=== PATIENT | male | born 1965 | race Caucasian/White ===

== ENCOUNTER 2020-09-24 02:26 | Day surgery (SDC) | payer BC, SELFPAY ==
[2020-09-18 15:11] VITALS: BMI 28.5
--- NOTE | 2020-09-24 07:52 | PM.HPGS ---
History of Present Illness History of Present Illness Consent: Risks, benefits, and alternatives of removal of multiple subcutaneous masses have been discussed and questions answered. Patient agrees to proceed with procedure. Chief complaint: lipomas Narrative: Milton Orantes is a 55 year old White male who was recently seen in the office at the request of Dr. Spears for evaluation of possible lipomas. Patient reports he has had a total of 3-4 masses. One is located on his chest, one on his back one in the Lt axilla on the chest side, and one on upper medial Rt. arm. He reports these are causing some pain but they are growing at a slow rate. He reports that none really bother him but because of their growth he has concern has never had one removed. Patient states he 1st noticed these about 3-5 years ago. Patient's mother from squamous cell carcinoma of the mouth last year. Review of Systems Constitutional: Constitutional: Reports no additional constitutional complaints and Denies frequent falls Eyes: Eyes: Reports as per HPI ENT: Reports Normal hearing present, Denies dizziness and Reports other (Mucous membranes moist.) Cardiovascular: Cardiovascular: Denies chest pain, Denies palpitations, Denies dyspnea and Denies dyspnea on exertion Respiratory: Respiratory: Denies hemoptysis, Denies dyspnea, Denies dyspnea on exertion and Denies wheezing Gastrointestinal: Gastrointestinal: Reports no additional gastrointestinal complaints Genitourinary: Genitourinary: Denies hematuria, Denies nocturia and Denies urinary frequency Musculoskeletal: Musculoskeletal: Denies deformity and Reports other ( no clubbing,cyanosis, or edema) Integumentary/Breasts: Skin/Breast: Denies new lesions, Denies rash and Denies unusual bruising Neurologic: Reports Normal hearing present, Denies dizziness, Denies frequent falls, Denies memory loss and Denies seizure-like activity Psychiatric: Psychiatric: Denies memory loss and Reports other ( normal mood and mental status) Endocrine: Endocrine: Denies cold intolerance and Denies palpitations Hematologic/Lymphatic: Hematologic/Lymphatic: Denies easy bleeding and Denies easy bruising Allergic/Immunologic: Allergic/Immunologic: Denies wheezing and Reports other ( no lymphadenopathy) [facility] Past Medical History Medical History B12 deficiency Brain concussion (~04/09/16) Detrusor instability Electric shock Erectile dysfunction Foot fracture, right (~09/27/18) Fracture of first metatarsal bone of right foot Hand fracture (~1991) Hyperglycemia Leg fracture (~1977) Neuroma of third interspace of right foot Overweight (BMI 25.0-29.9) Prediabetes Rectal polyp (~06/26/17) Requests hormone replacement therapy Sleep apnea Testosterone deficiency in male Tubular adenoma (~06/26/17) Unspecified vitamin D deficiency Surgical History Surgical History History of adenoidectomy History of hand surgery History of tonsillectomy Family History Family History Grandparent Diabetes mellitus Breast cancer Father Malignant neoplasm of prostate Heart disease Mother Malignant neoplasm Other Malignant neoplasm of prostate Other Family history of arthritis Social History Social History Alcohol intake: current Drinks per week: 10 Living arrangements: with family Additional occupation/education comments: Sales Meds Home Medications and Allergies Home Medications Medication Instructions Recorded Confirmed Type oxybutynin chloride 5 mg tablet 5 mg PO DAILY PRN #30 tablet 03/30/20 09/18/20 Rx sildenafil (pulm.hypertension) 20 20 mg PO DAILY PRN #30 tablet 03/30/20 09/18/20 Rx mg tablet fluticasone propionate 2 spray NASAL DAILY PRN 09/18/20
[2020-09-24 08:31] VITALS: BMI 28.3
[2020-09-24 08:34] VITALS: BP 121/77; PULSE 71; RESP 18; TEMP 36.2; O2SAT 100
--- NOTE | 2020-09-24 08:37 | WPDANESEPPF ---
Anes - Initial Pre Proc Eval Procedure: Operation Date: 09/24/20 09:00 Proposed Procedures p Excision of Three Lipomas-Right Upper Arm, Left Chest and Left Upper Arm - Mansoor Geller MD Date/Time: 09/24/20 08:37 Surgeon: Mansoor Geller MD Pre Op Diagnosis: lipomas Patient Data Age: 55 Gender: M Height: 1.8 m Weight: 92.1 kg Last Vital Signs Temp 36.2 C L 09/24/20 08:34 Pulse 71 09/24/20 08:34 Resp 18 09/24/20 08:34 BP 121/77 09/24/20 08:34 Pulse Ox 100 09/24/20 08:34 Allergies Allergy/AdvReac Type Severity Reaction Status Date / Time meperidine Allergy Mild Hives Verified 09/24/20 08:02 Penicillins Allergy Mild Rash Verified 09/24/20 08:02 Home Medications Medication Instructions Recorded Confirmed Type oxybutynin chloride 5 mg tablet 5 mg PO DAILY PRN #30 tablet 03/30/20 09/18/20 Rx sildenafil (pulm.hypertension) 20 20 mg PO DAILY PRN #30 tablet 03/30/20 09/18/20 Rx mg tablet fluticasone propionate 2 spray NASAL DAILY PRN 09/18/20 09/18/20 History Patient hx anesthesia problems: none Family hx anesthesia problems: none PMFSH Past Medical History Medical History B12 deficiency Brain concussion (~04/09/16) Detrusor instability Electric shock Erectile dysfunction Foot fracture, right (~09/27/18) Fracture of first metatarsal bone of right foot Hand fracture (~1991) Hyperglycemia Leg fracture (~1977) Neuroma of third interspace of right foot Overweight (BMI 25.0-29.9) Prediabetes Rectal polyp (~06/26/17) Requests hormone replacement therapy Sleep apnea Testosterone deficiency in male Tubular adenoma (~06/26/17) Unspecified vitamin D deficiency Surgical History Surgical History History of adenoidectomy History of hand surgery History of tonsillectomy Family History Family History Grandparent Diabetes mellitus Breast cancer Father Malignant neoplasm of prostate Heart disease Mother Malignant neoplasm Other Malignant neoplasm of prostate Other Family history of arthritis Social History Social History Alcohol intake: current Drinks per week: 10 Living arrangements: with family Additional occupation/education comments: [employer] Final PreProcedure Day of Procedure 09/24/20 08:37 Patient weight: overweight Heart: regular rate and rhythm Lungs: clear to auscultation and normal air movement Airway: Mallampati scale class II Neurological: alert and oriented Last oral intake: >/= 8 hours ASA classification: III Emergent: no Anesthetic plan: proceed Anesthesia type and monitoring: general GIVS and LMA Informed Consent: The patient's anesthetic plan and its attendant risks and benefits were discussed with the patient/family/POA. Questions were solicited and answers provided to the satisfaction of the patient/family/POA.
[2020-09-24] MEDS: LACTATED RINGERS 1,000 ML 30 ML IV CONT (09:19)
--- NOTE | 2020-09-24 10:12 | WPDHPUPDATE1 ---
History and Physical Update Update Date/Time: 09/24/20 10:12 History and Physical has been reviewed, including an updated exam of the patient. There are NO changes in the patient's condition. Risks, benefits, and alternatives have been discussed and questions answered. Patient agrees to proceed with procedure.
--- NOTE | 2020-09-24 10:23 | WPDHPUPDATE1 ---
History and Physical Update Update Date/Time: 09/24/20 10:23 History and Physical has been reviewed, including an updated exam of the patient. There are NO changes in the patient's condition. Risks, benefits, and alternatives have been discussed and questions answered. Patient agrees to proceed with procedure.
[2020-09-24] MEDS: ceFAZolin 2 GM/D5W 50 ML 2 GM/50 ML BAG IVPB (10:37)
[2020-09-24] MEDS: BUPIVACAINE/EPINEPHRINE 0.5% 50 ML VIAL (11:29)
[2020-09-24 11:45] VITALS: BP 112/77; PULSE 61; RESP 12; O2SAT 98
[2020-09-24 12:15] VITALS: BP 122/90; PULSE 52; RESP 16
[2020-09-24] MEDS: ACETAMINOPHEN 325 MG TABLET 650 MG PO (12:43)
[2020-09-24 12:45] VITALS: BP 116/73; PULSE 50; RESP 16
--- NOTE | 2020-09-24 13:38 | SUR.PHASEII ---
1315 pt ready for discharge waiting for dr desir to get done with case. no orders for discharge in or pain prescriptions
--- NOTE | 2020-09-24 22:10 | P.OP_ITS ---
Procedure Note - Detailed Date of Procedure 09/24/20 Pre-op Diagnosis subcutaneous masses right upper arm and left anterior chest ( suspected lipomas) Post-op Diagnosis same Procedure Performed Excision of subcutaneous masses left anterior chest 2.5 x 2 cm and right upper arm 1.5 x 1.2 cm Surgeon Mansoor Geller MD [employer] CONOR Will, OR 1st assist Anesthesia local ( 0.5 Marcaine with epinephrine) and other ( G IV S) Indications enlarging lipomas or subcutaneous masses concerning to the patient since his mother of cancer 1 year ago. Description of Procedure The patient was placed in the supine position with his Rt. arm out to the tony and rotated externaly. After a surgical time out confirming patient and procedure the patient was prepped and draped in the usual sterile fashion exposing first the mass on his left anterior chest and then later cutting a separate hole in the drawpe immediately over the area on his Rt. arm where the other skin/sucutaneous lesion existed. Local anesthetic was administered subcutaneously. The lesion measured 2.5 X2.0 cm on the Left chest and 1.5 X 1.2 cm on the Rt. upper arm. On the left anterior chest, because it seemed to be a subcutaneous mass with no overlying skin changes, a direct incision was made over the mass transversely and carried down through subcutaneous tissues. I identified what appeared to be a fatty tumor, suspected lipoma, in the subcutaneous tissues. Keeping just outside the thin apparent capsule I completely excised this lesion passed off field for pathologic evaluation. This was subsequently closed in two layers in the same manner described below for that on the arm. An elliptical incision was made around the lesion on the Rt. upper arm taking a thin margin circumferentially. I dissected down to the deep subcutaneous tissues and then completely excised the lesion. Bleeding was controlled with electrocautery. The wound was closed in two layers. An un-dyed 3-0 Vicryl deep dermal and then a 4-0 undyed Monocryl running subcuticular closure was completed. Surgical glue applied as dressing. Patient tolerated this well. Estimated Blood Loss -5.0 Drains No Pathology yes Complications No immediate complications Condition stable Disposition same day
== END 2020-09-24 14:21 | disposition home or self-care (01) ==
PROVIDERS: PCP Family Medicine; Visit Provider Surgery
PROC: (CPT 24075; principal; 2020-09-24 09:00)
DX: D17.21 Benign lipomatous neoplasm of skin and subcutaneous tissue of right arm (principal); D17.1 Benign lipomatous neoplasm of skin and subcutaneous tissue of trunk; E53.8 Deficiency of other specified B group vitamins; R73.9 Hyperglycemia, unspecified; R73.03 Prediabetes; G47.30 Sleep apnea, unspecified; E55.9 Vitamin D deficiency, unspecified; E78.2 Mixed hyperlipidemia
CPT/HCPCS: 24075; 21555; 88304; A9270; J0690; J1100; J2250; J2405; J2704; J3010; J7120

== ENCOUNTER 2021-09-23 13:55 | Outpatient (CLI) | payer BC, SELFPAY ==
--- NOTE | ~2021-09-23 | XR_ITS ---
XR hip RT min 2V 09/23/2021 14:15 Indication: Right hip pain after fall Procedure: 2 views right hip Comparison: No prior studies for comparison. Findings: There is mild-moderate osteoarthritis of the right hip. No fracture, subluxation or disloca tion. No soft tissue abnormality. Impression: 1: Mild-moderate osteoarthritis of the right hip. Reviewed, dictated and finalized at location B. Impression: 1: Mild-moderate osteoarthritis of the right hip.
== END 2021-09-23 13:56 | disposition home or self-care (01) ==
PROVIDERS: PCP Family Medicine; Visit Provider Family Medicine
DX: M16.11 Unilateral primary osteoarthritis, right hip (principal)
CPT/HCPCS: 73502

== ENCOUNTER 2021-11-26 10:46 | Outpatient (CLI) | payer BC, SELFPAY ==
[2021-11-26 20:44] LABS: LDL Cholesterol Direct 139 mg/dL
[2021-11-26 20:55] LABS: Hemoglobin A1C 5.8 % (<5.7)
[2021-11-26 21:16] LABS: Alanine Aminotransferase 34 U/L (6-50); Albumin Level 4.9 g/dL (3.5-5.1); Alkaline Phosphatase 57 U/L (38-126); Anion Gap 11 mmol/L (8-16); Aspartate Amino Transferase 33 U/L (17-59); Bilirubin,Total 0.5 mg/dL (0.2-1.3); Blood Urea Nitrogen 15 mg/dL (9-20); Calcium 9.7 mg/dL (8.4-10.2); Carbon Dioxide 29 mmol/L (22-30); Chloride 100 mmol/L (98-107); Cholesterol 241 mg/dL (0-200); Estimated Glomerular Filt Rate > 60; Glucose 91 mg/dL (65-110); HDL Direct 61 mg/dL; Potassium 4.9 mmol/L (3.4-5.0); Sodium 140 mmol/L (137-145); Triglycerides 171 mg/dL (<150)
== END 2021-11-26 10:47 | disposition home or self-care (01) ==
LOC: ANHGOSHLAB 10:47
PROVIDERS: PCP Family Medicine; Visit Provider Family Medicine
DX: E78.5 Hyperlipidemia, unspecified (principal)
CPT/HCPCS: 36415; 80053; 80061; 83036

== ENCOUNTER 2022-06-01 07:53 | Outpatient (CLI) | payer BC, SELFPAY ==
--- NOTE | 2022-06-22 17:12 | WPDSLEEPSTUD ---
Sleep Study Date of Study: 06/01/22 Ordering Provider: Rivera Spears MD Interpreting Physician: Susy Cleary MD Sleep Study Type: Polysomnogram Height: 1.8 m Weight: 90.718 kg Body Mass Index: 27.8 Neck Circumference (inches): 17 [place]: 10 Reason for Sleep Study Hypersomnolence Sleep History Milton Orantes is a 57-year-old man with snoring and restless sleep. he occasionally awakens from sleep feeling short of breath. He rarely awakens at night with heartburn, belching or coughing. He frequently snores very loudly. He occasionally has trouble sleeping with a cold. He rarely wakes up gasping for breath at night or a breathing problems at night observed by others. He occasionally sweats excessively at night, occasionally notices his heart pounding or beating irregularly at night and occasionally falls asleep during the day. He rarely falls asleep involuntarily, never falls asleep while driving. He does not have loss of muscle tone with strong emotion. He rarely has daytime difficulties due to excessive sleepiness. He does not feel paralyzed on waking or falling asleep. He does not have vivid dreamlike scenes on waking or falling asleep. He occasionally feels afraid to go to sleep. He rarely has nightmares. He rarely remembers his dreams. He occasionally has racing thoughts. He rarely feels sad or depressed. He occasionally has anxiety. He rarely has muscular tension. He occasionally notices parts of his body jerking. He does not kick at night. He occasionally has crawling and aching feelings in his legs. He occasionally has leg pain at night. He occasionally has morning jaw pain. He occasionally grinds his teeth during sleep. He rarely is bothered by pain during the day. He rarely is awakened by pain at night. He occasionally wakes up feeling stiff in the morning with sore achy muscles. He occasionally wakes up with pain in the neck and spine. Normal bedtime is midnight, sometimes taking hours to fall asleep. He usually wakes twice during the night for about 15 minutes, Usually to go to the bathroom and he is able to return to sleep easily. He wakes in the morning by 7:00 a.m.. His weekend schedule is the same. At best he is getting 6 hours of sleep at night. He does not generally take naps in the afternoon or evening. A short nap may be refreshing. He is drowsy for 2 hours after waking. He feels better in the afternoon compared to other times of day.. Habits: Never smoked tobacco. Caffeine 1 red Bull per day. Alcohol 2 beverages average per day. No recreational substances. [facility] Past Medical History Medical History B12 deficiency Brain concussion (~04/09/16) Detrusor instability Electric shock Erectile dysfunction Foot fracture, right (~09/27/18) Fracture of first metatarsal bone of right foot Hand fracture (~1991) Hyperglycemia Leg fracture (~1977) Neuroma of third interspace of right foot Overweight (BMI 25.0-29.9) Prediabetes Rectal polyp (~06/26/17) Requests hormone replacement therapy Sleep apnea Testosterone deficiency in male Tubular adenoma (~06/26/17) Unspecified vitamin D deficiency Varicose vein of leg Surgical History Surgical History History of adenoidectomy History of excision of mass Excision of subcutaneous masses left anterior chest 2.5 x 2 cm and right upper arm 1.5 x 1.2 cm 09/24/20 History of hand surgery History of tonsillectomy Family History Family History Grandparent Diabetes mellitus Breast cancer Father Malignant neoplasm of prostate Heart disease Mother Malignant neoplasm Other Malignant neoplasm of prostate Other Family history of arthritis Social History Social History Smoking status: Never smoker Alcohol intake: cur
[2022-06-23 18:52] VITALS: BMI 27.8
== END 2022-06-02 06:10 | disposition home or self-care (01) ==
LOC: ANHCSM 07:54
PROVIDERS: PCP Family Medicine; Visit Provider Family Medicine
DX: G47.10 Hypersomnia, unspecified (principal); R06.83 Snoring
CPT/HCPCS: 95810

== ENCOUNTER 2022-06-11 08:11 | Outpatient (CLI) | payer BC, SELFPAY ==
[2022-06-11 15:34] LABS: Hemoglobin A1C 5.7 % (<5.7)
[2022-06-11 15:45] LABS: Prostate Specific Antigen 0.7 ng/mL (< OR = 4.0)
[2022-06-15 10:50] LABS: Testosterone Total 281 ng/dL (250-1100)
== END 2022-06-11 08:12 | disposition home or self-care (01) ==
LOC: ANHGOSHLAB 08:12
PROVIDERS: PCP Family Medicine; Visit Provider Family Medicine
DX: E78.5 Hyperlipidemia, unspecified (principal); R73.03 Prediabetes; Z80.42 Family history of malignant neoplasm of prostate; R61 Generalized hyperhidrosis
CPT/HCPCS: 36415; 83036; 84153; 84403; G0103

== ENCOUNTER 2023-06-29 12:34 | Outpatient (CLI) | payer BC, SELFPAY ==
[2023-06-29 13:26] LABS: Basophils Percent Auto 0.7 % (0.2-1.2); Eosinophils Absolute Auto 0.2 K/mm3 (0-0.3); Eosinophils Percent Auto 4.1 % (0-4.4); Hemoglobin 13.8 g/dL (14.0-18.0); Immature Granulocyte Absolute 0.03 K/mm3 (0.00-0.031); Immature Granulocyte Percent A 0.7 % (0-0.5); Lymphocytes Absolute Auto 1.79 K/mm3 (0.9-3.2); Lymphocytes Percent Auto 40.9 % (18.3-44.2); Mean Corpuscular HGB Conc 32.9 g/dl (32-36); Mean Corpuscular Hemoglobin 31.2 pg (26-34); Mean Corpuscular Volume 94.8 fl (80-100); Mean Platelet Volume 9.9 fl (7.4-10.4); Monocytes Absolute Auto 0.4 K/mm3 (0.1-0.6); Neutrophils Absolute Auto 1.9 K/mm3 (1.3-6.7); Neutrophils Percent Auto 43.6 % (45.5-73.1); Platelet Count Result 254 k/mm3 (150-375); Red Blood Count 4.43 M/mm3 (4.6-6.20); Red Cell Distribution Width 12.5 % (11.5-14.5); White Blood Count 4.4 K/mm3 (4.5-10.0)
[2023-06-29 14:07] LABS: Hemoglobin A1C 5.6 % (<5.7)
[2023-06-29 20:09] LABS: Alanine Aminotransferase 33 U/L (6-50); Albumin Level 4.7 g/dL (3.5-5.1); Alkaline Phosphatase 52 U/L (38-126); Anion Gap 6 mmol/L (4-12); Aspartate Amino Transferase 39 U/L (17-59); Bilirubin,Total 0.8 mg/dL (0.2-1.3); Blood Urea Nitrogen 20 mg/dL (9-20); Carbon Dioxide 28 mmol/L (22-30); Chloride 102 mmol/L (98-107); Cholesterol 241 mg/dL (0-200); Estimated Glomerular Filt Rate > 60; Glucose 95 mg/dL (65-110); HDL Direct 46 mg/dL; Potassium 4.2 mmol/L (3.4-5.0); Sodium 136 mmol/L (137-145); Triglycerides 159 mg/dL (<150)
[2023-06-29 20:20] LABS: LDL Cholesterol Direct 153 mg/dL
== END 2023-06-29 12:35 | disposition home or self-care (01) ==
LOC: ANHGOSHLAB 12:35
PROVIDERS: PCP Family Medicine; Visit Provider Nurse Practitioner Family
DX: E53.8 Deficiency of other specified B group vitamins (principal); R73.01 Impaired fasting glucose; R73.03 Prediabetes; R53.83 Other fatigue; R10.10 Upper abdominal pain, unspecified; E78.2 Mixed hyperlipidemia; R07.9 Chest pain, unspecified
CPT/HCPCS: 36415; 80053; 80061; 82607; 83036; 84443; 85025

== ENCOUNTER 2023-07-14 08:30 | Outpatient (CLI) | payer BC, SELFPAY ==
--- NOTE | ~2023-07-14 | NM_ITS ---
EXAMINATION: NM stress w perf spect multi DATE: 07/14/2023 11:33 INDICATION: Chest pain, unspecified. TECHNIQUE: Rest images were obtained following intravenous administration of 10.2 mCi Tc99m tetrofosm in (Myoview). The patient performed an exercise activity. At peak exercise, 33.8 mCi Tc99m tetrofosmi n (Myoview) was administered intravenously, and stress images were obtained. Data was reconstructed i nto short axis and horizontal and vertical long axis SPECT images. Gated SPECT images were also obtai itz. COMPARISON: None. FINDINGS: There is no definite reversible or fixed perfusion abnormality to suggest ischemia or infar ction. There is no segmental wall motion abnormality. Left ventricular ejection fraction measures 5 3%. IMPRESSION: 1. No definite ischemia or infarct. 2. Normal left ventricular ejection fraction measuring 53%. Reviewed, dictated and finalized at location A.
--- NOTE | 2023-07-14 08:41 | EST_ITS ---
Patient Info Name: Milton Orantes Age: 58 years : 1965 Gender: Male Ht: 71 in Wt: 200 lbs BSA: 2.15 m2 HR: 56 bpm BP: 130 / 84 mmHg Heart Rhythm: Sinus Rhythm Exam Date: 07/14/2023 10:18 AM Exam Location: Echo Lab Patient Status: Outpatient Admit Date: 07/14/2023 Staff Ordering Physician: Haydee Mina Attending Provider: Haydee Mina Exercise Technologist: Jamaica Doan CT Nurse: Mirian Mason APN Exam Type: CA stress test treadmill w NM Study Info Indications R06.09 - Other forms of dyspnea A treadmill exercise stress test was performed. Summary 1. Exercise capacity very good at >10 METS. 2. No abnormal ST/T wave changes diagnostic of ischemia with exercise. 3. Please correlate with nuclear medicine images, reported separately. 4. Stress test supervised by Mirian Mason NP. Stress test interpreted by Ga Alcala MD. Protocol: Matt Stress ECG Details Stage: REST Duration (min): 1 min : 33 sec Speed (mph): 0.0 Grade (%): 0 HR (bpm): 60 SBP (mmHg): 130 DBP (mmHg): 84 METS: --- Stage: REST Duration (min): 7 min : 30 sec Speed (mph): 0.0 Grade (%): 0 HR (bpm): 56 SBP (mmHg): 130 DBP (mmHg): 84 METS: --- Stage: STAGE 1 Duration (min): 1 min : 0 sec Speed (mph): 1.7 Grade (%): 10 HR (bpm): 95 SBP (mmHg): 130 DBP (mmHg): 84 METS: --- Stage: STAGE 1 Duration (min): 2 min : 0 sec Speed (mph): 1.7 Grade (%): 10 HR (bpm): 101 SBP (mmHg): 130 DBP (mmHg): 84 METS: --- Stage: STAGE 1 Duration (min): 3 min : 0 sec Speed (mph): 1.7 Grade (%): 10 HR (bpm): 100 SBP (mmHg): 150 DBP (mmHg): 62 METS: --- Stage: STAGE 2 Duration (min): 1 min : 0 sec Speed (mph): 2.5 Grade (%): 12 HR (bpm): 113 SBP (mmHg): 150 DBP (mmHg): 62 METS: --- Stage: STAGE 2 Duration (min): 2 min : 0 sec Speed (mph): 2.5 Grade (%): 12 HR (bpm): 118 SBP (mmHg): 162 DBP (mmHg): 63 METS: --- Stage: STAGE 2 Duration (min): 3 min : 0 sec Speed (mph): 2.5 Grade (%): 12 HR (bpm): 123 SBP (mmHg): 162 DBP (mmHg): 63 METS: --- Stage: STAGE 3 Duration (min): 1 min : 0 sec Speed (mph): 3.4 Grade (%): 14 HR (bpm): 136 SBP (mmHg): 184 DBP (mmHg): 69 METS: --- Stage: STAGE 3 Duration (min): 2 min : 0 sec Speed (mph): 3.4 Grade (%): 14 HR (bpm): 143 SBP (mmHg): 184 DBP (mmHg): 69 METS: --- Stage: STAGE 3 Duration (min): 2 min : 23 sec Speed (mph): 3.4 Grade (%): 14 HR (bpm): 143 SBP (mmHg): 184 DBP (mmHg): 69 METS: --- Stage: RECOVERY Duration (min): 0 min : 36 sec Speed (mph): 0.0 Grade (%): 0 HR (bpm): 127 SBP (mmHg): 180 DBP (mmHg): 62 METS: --- Stage: RECOVERY Duration (min): 1 min : 36 sec Speed (mph): 0.0 Grade (%): 0 HR (bpm): 84 SBP (mmHg): 180 DBP (mmHg): 62 METS: --- S
== END 2023-07-14 08:31 | disposition home or self-care (01) ==
PROVIDERS: PCP Family Medicine; Visit Provider Nurse Practitioner Family
DX: R06.09 Other forms of dyspnea (principal); R07.9 Chest pain, unspecified
CPT/HCPCS: 78452; 93017; A9502

== ENCOUNTER 2023-07-17 02:02 | Day surgery (SDC) | payer BC, SELFPAY ==
[2023-07-08 10:02] VITALS: BMI 27.9
--- NOTE | 2023-07-15 08:07 | WPDANESEPPF ---
Anes - Initial Pre Proc Eval Procedure: Operation Date: 07/17/23 08:30 Proposed Procedures p Esophagogastroduodenoscopy & Colonoscopy - Rock Cook MD Date/Time: 07/15/23 08:07 Surgeon: Rock Cook MD Pre Op Diagnosis: Uper abdominal pain, Personal Hx. colon polyps Patient Data Age: 58 Gender: M Height: 1.8 m Weight: 91 kg Allergies Allergy/AdvReac Type Severity Reaction Status Date / Time meperidine Allergy Mild Hives Verified 06/29/23 11:44 Penicillins Allergy Mild Rash Verified 06/29/23 11:44 Home Medications Medication Instructions Recorded Confirmed Type oxybutynin chloride 5 mg tablet See Rx Instructions .Route 05/06/23 07/08/23 Rx .COMPLEX #90 tabs pantoprazole 40 mg tablet,delayed 40 mg PO QAM 4 weeks #28 tabs 06/29/23 07/08/23 Rx release atorvastatin 10 mg tablet 10 mg PO DAILY #90 tabs 06/30/23 07/08/23 Rx ferrous sulfate 325 mg (65 mg 325 mg PO DAILY 06/30/23 07/08/23 History iron) tablet Patient hx anesthesia problems: none Family hx anesthesia problems: none Results Review: All pre-operative results and documents have been reviewed as part of the pre-operative evaluation. [facility] Past Medical History Medical History B12 deficiency Brain concussion (~04/09/16) Detrusor instability Electric shock Erectile dysfunction Foot fracture, right (~09/27/18) Fracture of first metatarsal bone of right foot Hand fracture (~1991) Hyperglycemia Impingement of right shoulder Labral tear of long head of right biceps tendon Leg fracture (~1977) Metatarsalgia of right foot Neuroma of second interspace of right foot Neuroma of third interspace of right foot Overweight (BMI 25.0-29.9) Prediabetes Rectal polyp (~06/26/17) Requests hormone replacement therapy Sleep apnea Testosterone deficiency in male Tubular adenoma (~06/26/17) Unspecified vitamin D deficiency Varicose vein of leg Surgical History Surgical History History of adenoidectomy History of excision of mass Excision of subcutaneous masses left anterior chest 2.5 x 2 cm and right upper arm 1.5 x 1.2 cm 09/24/20 History of hand surgery History of tonsillectomy Family History Family History Grandparent Diabetes mellitus Breast cancer Father Malignant neoplasm of prostate Heart disease Mother Malignant neoplasm Other Malignant neoplasm of prostate Other Family history of arthritis Social History Social History Smoking status: Never smoker Alcohol intake: current Drinks per week: 10 Substance use: never Substance use type: does not use Other substance usage details: gummy occasionally to help sleep Do You Feel Safe in your Home?: Yes Lack of Transportation: No Lack of Food: Never True Current Housing: I Have Housing Concerned About Future Housing: No Difficulty Paying Gas/Electric Bills: No Difficulty Paying for Meds: No Currently Unemployed: No Education: High School Diploma/GED Difficulty w/ Childcare or Family Care: No Living arrangements: with family 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 Spiritual care concerns: No Anes - Eval Final PreProcedure Day of Procedure 07/15/23 08:07 Patient weight: normal Heart: regular rate and rhythm Lungs: clear to auscultation Airway: Mallampati scale Neurological: alert and oriented Last oral intake: >/= 8 hours ASA classification: II Emergent: no Anesthetic plan: proceed Anesthesia type and monitoring: general GIVS and standard monitoring Results Review: All pre-operative results and documents have been reviewed as part of the pre-operative evaluation. Informed Consent: The patient's anesthetic plan and its att
[2023-07-17 07:29] VITALS: BP 113/70; PULSE 63; RESP 18; TEMP 35.8; O2SAT 98
[2023-07-17] MEDS: LACTATED RINGERS 1,000 ML 150 ML IV CONT (07:37)
--- NOTE | 2023-07-17 08:21 | WPDANESEPPF ---
Anes - Initial Pre Proc Eval Procedure: Operation Date: 07/17/23 08:30 Proposed Procedures p Esophagogastroduodenoscopy & Colonoscopy - Rock Cook MD Date/Time: 07/17/23 08:21 Surgeon: Rock Cook MD Pre Op Diagnosis: Uper abdominal pain, Personal Hx. colon polyps Patient Data Age: 58 Gender: M Height: 1.8 m Weight: 89.9 kg Last Vital Signs Temp 96.4 F L 07/17/23 07:29 Pulse 63 07/17/23 07:29 Resp 18 07/17/23 07:29 BP 113/70 07/17/23 07:29 Pulse Ox 98 07/17/23 07:29 O2 Del Method Room Air 07/17/23 07:29 Allergies Allergy/AdvReac Type Severity Reaction Status Date / Time meperidine Allergy Mild Hives Verified 07/17/23 07:26 Penicillins Allergy Mild Rash Verified 07/17/23 07:26 Home Medications Medication Instructions Recorded Confirmed Type oxybutynin chloride 5 mg tablet See Rx Instructions .Route 05/06/23 07/08/23 Rx .COMPLEX #90 tabs pantoprazole 40 mg tablet,delayed 40 mg PO QAM 4 weeks #28 tabs 06/29/23 07/08/23 Rx release atorvastatin 10 mg tablet 10 mg PO DAILY #90 tabs 06/30/23 07/08/23 Rx Patient hx anesthesia problems: none Family hx anesthesia problems: none Results Review: All pre-operative results and documents have been reviewed as part of the pre-operative evaluation. [facility] Past Medical History Medical History B12 deficiency Brain concussion (~04/09/16) Detrusor instability Electric shock Erectile dysfunction Foot fracture, right (~09/27/18) Fracture of first metatarsal bone of right foot Hand fracture (~1991) Hyperglycemia Impingement of right shoulder Labral tear of long head of right biceps tendon Leg fracture (~1977) Metatarsalgia of right foot Neuroma of second interspace of right foot Neuroma of third interspace of right foot Overweight (BMI 25.0-29.9) Prediabetes Rectal polyp (~06/26/17) Requests hormone replacement therapy Sleep apnea Testosterone deficiency in male Tubular adenoma (~06/26/17) Unspecified vitamin D deficiency Varicose vein of leg Surgical History Surgical History History of adenoidectomy History of excision of mass Excision of subcutaneous masses left anterior chest 2.5 x 2 cm and right upper arm 1.5 x 1.2 cm 09/24/20 History of hand surgery History of tonsillectomy Family History Family History Grandparent Diabetes mellitus Breast cancer Father Malignant neoplasm of prostate Heart disease Mother Malignant neoplasm Other Malignant neoplasm of prostate Other Family history of arthritis Social History Social History Smoking status: Never smoker Alcohol intake: current Drinks per week: 10 Substance use: never Substance use type: does not use Other substance usage details: gummy occasionally to help sleep Do You Feel Safe in your Home?: Yes Lack of Transportation: No Lack of Food: Never True Current Housing: I Have Housing Concerned About Future Housing: No Difficulty Paying Gas/Electric Bills: No Difficulty Paying for Meds: No Currently Unemployed: No Education: High School Diploma/GED Difficulty w/ Childcare or Family Care: No Living arrangements: with family 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
--- NOTE | 2023-07-17 08:23 | PM.HPGS ---
History of Present Illness History of Present Illness Consent: Risks, benefits, and alternatives have been discussed and questions answered. Patient agrees to proceed with procedure. Chief complaint: Uper abdominal pain, Personal Hx. colon polyps Narrative: Milton Orantes is a 58 year old male here for screening colonoscopy, last one 2017, also non cardiac chest pain with normal stress test Review of Systems Review of Systems: All systems reviewed & are unremarkable except as noted in HPI and below PMFSH Past Medical History Medical History (Updated 07/17/23 @ 08:23 by Rock Cook MD) B12 deficiency Brain concussion (~04/09/16) Colon cancer screening Detrusor instability Electric shock Erectile dysfunction Foot fracture, right (~09/27/18) Fracture of first metatarsal bone of right foot Hand fracture (~1991) Hyperglycemia Impingement of right shoulder Labral tear of long head of right biceps tendon Leg fracture (~1977) Metatarsalgia of right foot Neuroma of second interspace of right foot Neuroma of third interspace of right foot Overweight (BMI 25.0-29.9) Prediabetes Rectal polyp (~06/26/17) Requests hormone replacement therapy Sleep apnea Testosterone deficiency in male Tubular adenoma (~06/26/17) Unspecified vitamin D deficiency Varicose vein of leg Surgical History Surgical History History of adenoidectomy History of excision of mass Excision of subcutaneous masses left anterior chest 2.5 x 2 cm and right upper arm 1.5 x 1.2 cm 09/24/20 History of hand surgery History of tonsillectomy Family History Family History Grandparent Diabetes mellitus Breast cancer Father Malignant neoplasm of prostate Heart disease Mother Malignant neoplasm Other Malignant neoplasm of prostate Other Family history of arthritis Social History Social History Smoking status: Never smoker Alcohol intake: current Drinks per week: 10 Substance use: never Substance use type: does not use Other substance usage details: gummy occasionally to help sleep Do You Feel Safe in your Home?: Yes Lack of Transportation: No Lack of Food: Never True Current Housing: I Have Housing Concerned About Future Housing: No Difficulty Paying Gas/Electric Bills: No Difficulty Paying for Meds: No Currently Unemployed: No Education: High School Diploma/GED Difficulty w/ Childcare or Family Care: No Living arrangements: with family 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 Spiritual care concerns: No Meds Home Medications and Allergies Home Medications Medication Instructions Recorded Confirmed Type oxybutynin chloride 5 mg tablet See Rx Instructions .Route 05/06/23 07/08/23 Rx .COMPLEX #90 tabs pantoprazole 40 mg tablet,delayed 40 mg PO QAM 4 weeks #28 tabs 06/29/23 07/08/23 Rx release atorvastatin 10 mg tablet 10 mg PO DAILY #90 tabs 06/30/23 07/08/23 Rx Allergies Allergy/AdvReac Type Severity Reaction Status Date / Time meperidine Allergy Mild Hives Verified 07/17/23 07:26 Penicillins Allergy Mild Rash Verified 07/17/23 07:26 Vital Signs Vital Signs - 24 hr 07/17/23 07:29 Temperature 96.4 F L Pulse Rate 63 Respiratory Rate 18 Blood Pressure 113/70 Pulse Oximetry 98 Oxygen Delivery Room Air Exam Const: General: comfortable and no acute distress HENMT: Face/Nose/Sinus: Normal nares present Eyes: General: appearance normal, both eyes and all related structures Neck: Neck: no JVD Resp: Auscultation: clear to auscultation bilaterally Cardio: Rate: regular rate Rhythm: regular rhythm GI: Inspection: non-distended GI Palp: Yes Soft to palpation Skin: General skin exam: normal color Neuro: General: gait normal Speech:
[2023-07-17 08:50] VITALS: BP 103/70; PULSE 58; RESP 14; O2SAT 97
[2023-07-17 09:00] VITALS: BP 107/69; PULSE 59; RESP 14; O2SAT 99
[2023-07-17 09:10] VITALS: BP 107/69; PULSE 57; RESP 14; O2SAT 99
== END 2023-07-17 09:19 | disposition home or self-care (01) ==
PROVIDERS: PCP Family Medicine; Referring Provider Nurse Practitioner Family; Visit Provider Internal Medicine Gastroenterology
PROC: 0DJ08ZZ Inspection of Upper Intestinal Tract, Via Natural or Artificial Opening Endoscopic (ICD-10-PCS; CPT 43235; principal; 2023-07-17 08:30)
DX: Z12.11 Encounter for screening for malignant neoplasm of colon (principal); D12.2 Benign neoplasm of ascending colon; K64.8 Other hemorrhoids
CPT/HCPCS: 45385; 43239; 88305; J2001; J2704; J7120

== ENCOUNTER 2024-07-11 14:19 | Outpatient (CLI) | payer BC, SELFPAY ==
--- NOTE | ~2024-07-11 | MR_ITS ---
MRI of the lumbar spine Clinical History: Radiculopathy Technique: Axial T2-weighted images, and sagittal T1-weighted, T2-weighted, and and T2 fat-sat images were acquired. Findings: No fracture identified. There is 3 mm retrolisthesis of L2 over L3. There is 4 mm retrolist hesis of L3 over L4. There is 2 mm retrolisthesis of L5 over S1. No suspicious bone marrow signal abn ormality seen. At L1-L2, there is no disc bulge or herniation. There is moderate facet hypertrophy. No spinal canal stenosis or neural foraminal narrowing. At L2-L3, there is severe degenerative disc narrowing. There is mild diffuse disc bulge with mild to moderate facet arthropathy. There is minimal central canal stenosis. There is moderate to advanced bi lateral neural foraminal narrowing. At L3-L4, there is severe degenerative disc narrowing. There is mild disc bulge with moderate facet a rthropathy. No bacilio central canal stenosis. There is moderate to advanced left neural foraminal narr owing, and severe right neural foraminal narrowing. At L4-L5, there is advanced degenerative disc narrowing. Disc bulge and severe facet arthropathy resu lt in severe spinal canal stenosis/thecal sac compression. There is severe bilateral neural foraminal compromise. At L5-S1, there is mild diffuse disc bulge with moderate to advanced facet arthropathy. No central ca nal stenosis. There is to moderate bilateral neural foraminal narrowing. Paravertebral soft tissues are unremarkable. Impression: Advanced degenerative spondylosis, as detailed above. There is multifactorial severe spinal canal julio nosis at L4-L5. There is multilevel significant neural foraminal narrowing. Multiple grade 1 listheses, as above. Reviewed, dictated and finalized at [facility]. Impression: Advanced degenerative spondylosis, as detailed above. There is multifactorial s evere spinal canal stenosis at L4-L5. There is multilevel significant neural fo raminal narrowing. Multiple grade 1 listheses, as above.
== END 2024-07-11 14:20 | disposition home or self-care (01) ==
PROVIDERS: PCP Family Medicine; Visit Provider Orthopaedic Surgery
DX: M47.26 Other spondylosis with radiculopathy, lumbar region (principal)
CPT/HCPCS: 72148

== ENCOUNTER 2024-10-12 09:08 | Outpatient (CLI) | payer BC, SELFPAY ==
--- OUTSIDE RECORDS SUMMARY | 2024-10-12 09:41 | XMS_ITS | Clinical Summary ---
Author Organization [facility] Address [address] [place] [address] Phone Care Team Providers Care Director Software Development Name Role Phone Rivera Spears MD Primary Care Provider [phone] Allergies No known active allergies Medications No known medications Active Problems No known active problems Encounters Date Type Department Care Team Description 08/25/2024 Abstract [facility] [address] [place] [address] Yandel Hernandez MD 08/24/2024 10:38 AM CDT - 08/24/2024 11:59 PM CDT Hospital Encounter formerly [facility] [address] [place] [address] Yandel Hernandez MD Discharge Disposition: Home or Self Care 08/24/2024 9:30 AM CDT Office Visit [facility] [address] [place] [address] Yandel Hernandez MD Spondylolisthesis of lumbar region (Primary Dx); Lumbar stenosis with neurogenic claudication; Degeneration of intervertebral disc of lumbar region with discogenic back pain 08/24/2024 Abstract [facility] [address] [facility] [address] [place] [address] Yandel Hernandez MD 08/24/2024 Abstract [facility] [address] [address] [place] [address] Yandel Hernandez MD 08/24/2024 Abstract [facility] [place] [address] [place] [address] Yandel Hernandez MD 08/22/2024 Abstract [facility] [place] [address] [place] [address] Yandel Hernandez MD 08/17/2024 Telephone [facility] [place] [facility] [place] [address] [place] [address] Provider, Abstract new pt ppwk 07/27/2024 External Device Data [facility] Provider, Abstract 07/26/2024 External Device Data [facility] Provider, Abstract 07/26/2024 External Device Data [facility] Provider, Abstract 07/19/2024 Telephone [facility] [place] [address] [place] [address] Yandel Hernandez MD Wants Appointment 07/19/2024 [facility] [place] [address] [place] [address] Yandel Hernandez MD from Last 3 Months Family History Medical History Relation Name Comments Heart Disease Father Breast Cancer Maternal Grandmother Cancer Mother Relation Name Status Comments Father Maternal Grandmother Mother Social History Tobacco Use Types Packs/Day Years Used Date Smoking Tobacco: Never Smokeless Tobacco: Never Tobacco Cessation:Counseling Given: Not Answered Alcohol Use Standard Drinks/Week Comments Yes 0 (1 standard drink = 0.6 oz pur e alcohol) Sex and Gender Information Value Date Recorded Sex Assigned at Not on file Legal Sex Male 1:55 PM CDT Gender Identity Not on file Sexual Orientation Not on file Last Filed Vital Signs Vital Sign Reading Time Taken Comments Blood Pressure 159/82 08/24/2024 9:50 AM CDT Pulse 65 08/24/2024 9:50 AM CDT Temperature 36.4 C (97.5 F) 08/24/2024 9:50 AM CDT Respiratory Rate - - Oxygen Saturation 96% 08/24/2024 9:50 AM CDT Inhaled Oxygen Concentration - - Weight 99.3 kg (219 lb) 08/24/2024 9:50 AM CDT Height 180.3 cm (5' 11) 08/24/2024 9:50 AM CDT Body Mass Index 30.54 08/24/2024 9:50 AM CDT Plan of Treatment Health Maintenance Due Date Last Done Comments Pre-Diabetes and Diabetes Screening 1966 DTAP/TDAP/TD VACCINES (1 - Tdap) 1985 HEPATITIS B VACCINES (1 of 3 - 19+ 3-dose series) 05/10 COLORECTAL SCREENING 05/29/2011 Colorectal Cancer Screening 05/29/2011 FIT-DNA Q 3 years 05/29/2011 FIT/FOBT Q 1 year 05/29/2011 Flex Sig/CT Colonography Q 5 years 05/29/2011 ZOSTER VACCINE (1 of 2) 2016 INFLUENZA VACCINE (#1) 2024 Procedures Procedure Name Priority Date/Time Associated Diagnosis Comments XR LUMBAR SPINE 4+ VW Routine 08/24/2024 10:55 AM CDT Spondylolisthesis of lumbar region from Last 3 Months Results * XR LUMBAR SPINE 4+ VW (08/24/2024 10:55 AM CDT) Anatomical Region Laterality Modality Spine Computed Radiogr aphy 08/24/2024 10:5 5 AM CDT Impressions 08/24/2024 11:44 AM CDT IMPRESSION: 1. L4-5 spondylolisthesis that slightly changes between flexion and extension. DICTATION LOCATION: Location 4 Narrative 08/24/2024 11:44 AM CDT EXAMINATION: XR LUMBAR SPINE 4+ VW HISTORY: See Diagnosis. Spondylolisthesis of lumbar region FINDINGS: No prior study is available for comparison at the time of this dictation. There is 7 mm of L4-5 anterolisthesis in flexion measuring 5 mm in extension. Vertebral bodies are normal in height. There is moderate degenerative disc disease and lower lumbar facet osteoarthritis. Procedure Note Leonid Sharp MD - 08/24/2024 EXAMINATION: XR LUMBAR SPINE 4+ VW HISTORY: See Diagnosis. Spondylolisthesis of lumbar region FINDINGS: No prior study is available for comparison at the time of this dictation. There is 7 mm of L4-5 anterolisthesis in flexion measuring 5 mm in extension. Vertebral bodies are normal in height. There is moderate degenerative disc disease and lower lumbar facet osteoarthritis. IMPRESSION: 1. L4-5 spondylolisthesis that slightly changes between flexion and extension. DICTATION LOCATION: Location 4 us Yandel Hernandez MD DIAGNOSTIC IMAGING ORDERABLES Final Result from Last 3 Months Insurance [facility] BLUE ACCESS/TRUE [employer] PPO Care Teams Director Software Development Relationship Specialty Start Date End Date Rivera Spears MD [address] [place] [phone] PCP - General Family Practice 08/24/24
--- OUTSIDE RECORDS SUMMARY | 2024-10-12 09:41 | XMS_ITS | Clinical Summary ---
Author Organization [facility] Address [address] [place] [address] Care Team Providers Care Assembly Repairer Name Role Phone Rivera Spears MD Primary Care Provider [phone]- [phone] Source Comments [facility],non-owned Affiliates and Associated Physician Practices is amultiple site organization consisting of ambulatory clinics and hospital sitesin [place], [place], [place] and [place]. This disclosure is being madepursuant to the Care Everywhere program and may not contain all information available regarding this patient. Last updated 17.[facility] Allergies Active Allergy Reactions Criticality Noted Date Comments Penicillins Rash Medium 04/28/2024 Medications * Be aware that medications may not be up to date on this document. Alwaysverify current medications with the patient. atorvastatin (Lipitor) 10 MG tablet Take 1 (one) tablet by mouth once daily 04/06/2024 Active oxyBUTYnin (Ditropan) 5 MG tablet Take 1 (one) tablet by mouth 01/04/2024 Active Encounters Date Type Department Care Team Description 08/05/2024 1:00 PM CDT Procedure visit [facility] - Urology [address] [place] [address] [address] [place] [address] Citlali Aviles DO Family planning 08/05/2024 Travel from Last 3 Months Social History Tobacco Use Types Packs/Day Years Used Date Smoking Tobacco: Never Smokeless Tobacco: Never Tobacco Cessation:Counseling Given: Not Answered Alcohol Use Standard Drinks/Week Comments Yes 0 (1 standard drink = 0.6 oz pur e alcohol) socially PHQ-2 Answer Date Recorded Patient Health Questionnaire-2 Score 0 08/05/2024 Sex and Gender Information Value Date Recorded Sex Assigned at Not on file Legal Sex Male 7:12 AM CDT Gender Identity Not on file Sexual Orientation Not on file Last Filed Vital Signs Vital Sign Reading Time Taken Comments Blood Pressure 134/83 08/05/2024 1:41 PM CDT Pulse 76 08/05/2024 1:41 PM CDT Temperature 36.5 C (97.7 F) 08/05/2024 1:41 PM CDT Respiratory Rate 16 08/05/2024 1:41 PM CDT Oxygen Saturation 97% 08/05/2024 1:41 PM CDT Inhaled Oxygen Concentration - - Weight 97.3 kg (214 lb 6.4 oz) 08/05/2024 1:41 P M CDT Height 180.3 cm (5' 11) 08/05/2024 1:41 PM CDT Body Mass Index 29.9 08/05/2024 1:41 PM CDT Plan of Treatment Health Maintenance Due Date Last Done Comments COLOGUARD (AGES 45-75) - COL ON CA SCREENING 1966 COLON MONITORING 1966 COLONOSCOPY - COLON CA SCREENING 1966 CT COLONOGRAPHY - COLON CA SCREENING 1966 Colorectal Cancer Screening 1966 FIT - COLON CA SCREENING 1966 FLEX SIG - COLON CA SCREENING 1966 HIV SCREENING 1981 HEPATITIS C SCREENING 05/23/1984 DTAP/TDAP/TD VACCINES (1 - Tdap) 1985 HEPATITIS B VACCINE (1 of 3 - 19+ 3-dose series) 1985 PNEUMOCOCCAL VACCINE 50+ (1 of 1 - PCV) 2016 ZOSTER VACCINE (1 of 2) 2016 COVID-19 VACCINE (2023-2 5 season) 2023 INFLUENZA VACCINE (#1) 2024 DEPRESSION SCREENING Completed 08/05/2024 HIB VACCINE Aged Out No longer eligi ble based on patient's age to complete this topic HPV VACCINE Aged Out No longer eligi ble based on patient's age to complete this topic MENINGOCOCCAL (Group B) VACC INE SHARED DECISION-MAKING Aged Out No longer eligibl e based on patient's age to complete this topic MENINGOCOCCAL GROUPS A/C/Y/W VACCINE Aged Out No longer eligible b ased on patient's age to complete this topic Procedures Procedure Name Priority Date/Time Associated Diagnosis Comments IN REMOVAL OF SPERM DUCT(S) Routine 08/05/2024 2:48 PM CDT Family planning from Last 3 Months Results * IN REMOVAL OF SPERM DUCT(S) (08/05/2024 2:48 PM CDT) Narrative Citlali Aviles DO - 08/05/2024 2:48 PM CDT Citlali Aviles DO 08/05/2024 2:49 PM DOS: 08/06/2027 PREOP DIAGNOSIS: Family planning POSTOP DIAGNOSIS:Same PROCEDURE: Vasectomy ANESTHESIA: Local Lidocaine SURGEON:Stefan FINDINGS: Bilateral vas deferens isolated and small 1-2cm section removed. Ligated and coagulated. EBL:2cc SPECIMENS: None COMPLICATIONS:None INDICATIONS FOR PROCEDURE: 59yo male for family planning. After reviewing risks, benefits and alternatives, he consents to procedure. He understands he is not considered sterile until it is confirmed with semen analysis. DESCRIPTION OF PROCEDURE: The patient was laid in the supine position then prepped and draped in the usual sterile manner. Local lidocaine anesthesia was given bilaterally and one small incision in the midline was made and the vas deferens on the right was isolated, clamped. A 1-2cm portion was excised. The lumen was cauterized. It was ligated with 3-0 vicryl suture. Hemostasis was confirmed. The ends were allowed to fall back into the scotum without significant bleeding noted. The same procedure was performed on the left. The skin incision was closed with a glue. The patient tolerated the procedure well. He was able to ambulate and urinate before leaving the office. DISPOSITION: Home PLAN: Discharge instructions given to patient. RTC for any pain after 2 weeks. Semen analysis in 12 weeks. Citlali Aviles DO 08/05/2024 2:49 PM Citlali Aviles DO PROCEDURE/MINOR SURGICAL O RDERABLES Final Result from Last 3 Months Insurance ANTHEM ANTHEM * Guarantor: [employer] Account Type Relation to Patient Date of Phone Billing Address Personal/Family [address] [place] [address] ANTHEM Care Teams Assembly Repairer Relationship Specialty Start Date End Date Rivera Spears MD [address] [place] [id number] PCP - General 06/30/17
--- OUTSIDE RECORDS SUMMARY | 2024-10-12 09:41 | XMS_ITS | Clinical Summary ---
Author Organization [facility] [address] Address [address] [place] [address] Care Team Providers Care Barrel Painter Name Role Phone Rivera Spears MD Primary Care Provider [phone] Allergies Active Allergy Reactions Criticality Noted Date Comments Penicillins Rash Medium 04/28/2024 Medications atorvastatin (LIPITOR) 10 mg tablet Take 1 tablet (10 mg total) by mouth daily Active oxyBUTYnin (DITROPAN) 5 mg tablet Take 1 tablet (5 mg total) by mouth 01/04/2024 Active Active Problems No known active problems Encounters Date Type Department Care Team Description 09/23/2024 9:20 AM CDT Office Visit [facility] Medicine Orthopaedic Surgery [address] [place] [address] for Advanced Medicine 12th [place] [address] [place] [address] Artem Rudd MD Lumbar radiculopathy (Primary Dx); Spondylolisthesis of lumbar region 08/29/2024 8:29 AM CDT - 08/29/2024 11:59 PM CDT Hospital Encounter [facility] [address] [place] [id number] Discharge Disposition: Discharge to home or self care 08/23/2024 10:12 AM CDT - 08/23/2024 11:59 PM CDT Hospital Encounter [facility] ([facility] [address] [place] [address] Discharge Disposition: Discharge to home or self care 08/23/2024 10:00 AM CDT Office Visit [facility] Medicine Orthopaedic Surgery [address] 1[address] [place] [address] Tray Santiago MD Spinal stenosis, lumbar region, with neurogenic claudication (Primary Dx); Spondylolisthesis at L4-L5 level; Chronic bilateral low back pain with bilateral sciatica from Last 3 Months Surgical History Surgery Date Site/Laterality Comments HAND SURGERY FEMUR FRACTURE SURGERY VASECTOMY Medical History Medical History Date Comments Asthma Family History Medical History Relation Name Comments Heart disease Father Arthritis Mother Cancer Mother Relation Name Status Comments Father Mother Social History Tobacco Use Types Packs/Day Years Used Date Smoking Tobacco: Never Passive Smoke Exposure: Past Smokeless Tobacco: Never Tobacco Cessation:Counseling Given: Not Answered Sex and Gender Information Value Date Recorded Sex Assigned at Not on file Legal 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 DIGGER Gender Identity Not on file Sexual Orientation Not on file Obstetrics History Last Filed Vital Signs Vital Sign Reading Time Taken Comments Blood Pressure - - Pulse - - Temperature - - Respiratory Rate - - Oxygen Saturation - - Inhaled Oxygen Concentration - - Weight 95.3 kg (210 lb) 09/23/2024 9:34 AM CDT Height 180.3 cm (5' 11) 09/23/2024 9:34 AM CDT Body Mass Index 29.29 09/23/2024 9:34 AM CDT Plan of Treatment Health Maintenance Due Date Last Done Comments Colon Cancer Screening-Colonoscopy 1966 Depression Screening 1966 Hepatitis C Screening 1966 Prostate Cancer Screening-PSA 1966 DTaP/Tdap/Td Vaccine (1 - Tdap) 1977 Hepatitis B Screening 1984 Regular Well Visit/Exam 18-64 1984 Zoster Vaccine (1 of 2) 2016 Covid-19 Vaccine (3 - 2023-2 5 season) 2023 05/15/2020, 04/20/2020 Influenza Vaccine (#1) 2024 Pneumococcal vaccine <65 Aged Out No longer eligible based on patient's age to complete this topic Procedures Procedure Name Priority Date/Time Associated Diagnosis Comments XR TRANSFER OF OUTSIDE FILMS Routine 08/29/2024 8:29 AM CDT NEURO MR OUTSIDE REFERENCE Routine 08/23/2024 10:12 AM CDT from Last 3 Months Results * XR Outside Reference (08/29/2024 8:29 AM CDT) Impressions [facility] - 08/29/2024 8:29 AM CDT These images are for Reference purposes only and have not been reviewed by [facility] Radiology. There will be no report generated by a [facility] Radiologist. Narrative [facility] - 08/29/2024 8:29 AM CDT EXAMINATION: Images For Reference Purposes Only us Artem Rudd MD IMG XR PROCEDURES Final Result Performing Organization Address [facility]/ZIP Co de Phone Number [email or web address] * Neuro MR Outside Reference (08/23/2024 10:12 AM CDT) Impressions RAD_P[facility] - 08/23/2024 10:12 AM CDT These images are for Reference purposes only and have not been reviewed by [facility] Radiology. There will be no report generated by a [facility] Radiologist. Narrative RAD_PACS_[facility] - 08/23/2024 10:12 AM CDT EXAMINATION: Images For Reference Purposes Only us Tray Santiago MD IMG MRI PROCEDURES Final Result Performing Organization Address City/[facility]/ZIP Co de Phone Number [facility] from Last 3 Months [place] Care Teams Barrel Painter Relationship Specialty Start Date End Date Rivera Spears MD PCP - General Family Medicine 12/09/17
[2024-10-12 13:27] LABS: Hematocrit 44.0 % (42.0-52.0); Hemoglobin 13.9 g/dL (14.0-18.0); Immature Granulocyte Percent A 0.2 % (0-0.5); Lymphocytes Absolute Auto 1.96 K/mm3 (0.9-3.2); Mean Corpuscular HGB Conc 31.6 g/dl (32-36); Mean Corpuscular Hemoglobin 30.2 pg (26-34); Mean Corpuscular Volume 95.4 fl (80-100); Nucleated Red Blood Cells Absolute Auto 0.000 K/mm3 (0.0-0.012); Nucleated Red Blood Cells Perc 0.0 % (0.0-0.2); Platelet Count Result 256 k/mm3 (150-375); Red Blood Count 4.61 M/mm3 (4.6-6.20); White Blood Count 5.3 K/mm3 (4.5-10.0)
[2024-10-12 13:37] LABS: Cholesterol 197 mg/dL (0-200); HDL Direct 46 mg/dL; Triglycerides 141 mg/dL (<150)
[2024-10-12 17:47] LABS: Hemoglobin A1C 5.9 % (<5.7)
[2024-10-12 18:22] LABS: Prostate Specific Antigen 1.0 ng/mL (< OR = 4.0)
== END 2024-10-12 09:09 | disposition home or self-care (01) ==
LOC: ANHGOSHLAB 09:09
PROVIDERS: PCP Family Medicine; Visit Provider Family Medicine
DX: E78.1 Pure hyperglyceridemia (principal); R73.03 Prediabetes; Z12.5 Encounter for screening for malignant neoplasm of prostate
CPT/HCPCS: 36415; 80061; 83036; 84153; 85025; G0103

== ENCOUNTER 2025-01-27 10:31 | Outpatient (CLI) | payer BC, SELFPAY ==
--- NOTE | ~2025-01-27 | XR_ITS ---
EXAMINATION: XR chest 2V, 01/27/2025 10:34 SURFACE WATER TECHNICIAN HISTORY: R05.9 - Cough, unspecified COMPARISON: No comparisons available. Technique: 2 views obtained. Findings: The lungs are clear, no effusion. No pneumothorax. Heart is normal size. Mediastinal and hilar contours are within normal limits. Bony thorax no acute abnormality. Impression: No acute cardiopulmonary abnormality. Reviewed, dictated and finalized at location P. ACE WATER TECHNICIAN Impression: No acute cardiopulmonary abnormality.
== END 2025-01-27 10:32 | disposition home or self-care (01) ==
LOC: GOSHIMG 10:31
PROVIDERS: PCP Student in an Organized Health Care Education/Training Program; Visit Provider Student in an Organized Health Care Education/Training Program
DX: R05.9 Cough, unspecified (principal)
CPT/HCPCS: 71046